=== PATIENT | male | born 1995 | race Caucasian/White ===

== ENCOUNTER 2019-04-12 14:55 | Outpatient (CLI) | payer MEDICAID ==
[~2019-04-12 14:55] MED LIST: IBUP-1985 PO; METH-360 PO
== END 2019-04-12 16:00 | disposition home or self-care (01) ==
LOC: ORTHO 14:55
PROVIDERS: ATTEND Orthopaedic Surgery
DX: S62.337D Displaced fracture of neck of fifth metacarpal bone, left hand, subsequent encounter for fracture with routine healing (principal); X58.XXXD Exposure to other specified factors, subsequent encounter
CPT/HCPCS: 73130; G0463

== ENCOUNTER 2019-05-21 21:35 | Emergency (ER) | payer MEDICAID ==
[~2019-05-21] VITALS: Ht 172.7 cm; Wt 97.7 kg
[2019-05-21 21:37] VITALS: BP 147/82
[2019-05-21] MEDS ORDERED: ketorolac trometh. 30mg/ml inj. IV STA (21:47)
[2019-05-21] MEDS ORDERED: ondansetron/PF 4mg/2ml inj IV STA (21:47)
--- NOTE | 2019-05-21 21:57 | NUR ---
PT TO CT
[2019-05-21 22:01] LABS: BASOPHILS # (AUTO) 0.1 X10'3 (0-0.2); BASOPHILS % (AUTO) 0.7 % (0-1); EOSINOPHILS # (AUTO) 0.2 X10'3 (0-0.9); EOSINOPHILS % (AUTO) 2.4 % (0-6); HEMATOCRIT 42.4 % (42.0-52.0); HEMOGLOBIN 14.2 g/dl (14.0-17.9); LYMPHOCYTES # (AUTO) 2.8 X10'3 (1.1-4.8); MEAN CORPUSCULAR HEMOGLOBIN 28.1 PG (27.0-31.0); MEAN CORPUSCULAR HGB CONC 33.6 g/dL (33.0-36.5); MEAN CORPUSCULAR VOLUME 83.8 FL (78-98); MEAN PLATELET VOLUME 8.1 FL (7.4-10.4); MONOCYTES # (AUTO) 0.5 X10'3 (0-0.9); MONOCYTES % (AUTO) 6.4 % (2-12); NEUTROPHILS # (AUTO) 4.7 X10'3 (1.8-7.7); NEUTROPHILS % (AUTO) 56.5 % (42-75); PLATELET COUNT 260 X10'3 (140-440); RED BLOOD COUNT 5.06 X10'6 (4.70-6.10); RED CELL DISTRIBUTION WIDTH 12.8 % (11.5-14.5); WHITE BLOOD COUNT 8.2 X10'3 (4.5-11.0)
[2019-05-21 22:14] LABS: ALANINE AMINOTRANSFERASE 46 U/L (12-78); ALBUMIN 3.8 G/DL (3.4-5.0); ALBUMIN/GLOBULIN RATIO 1.2 (1.1-1.5); ALKALINE PHOSPHATASE 108 IU/L (46-116); ANION GAP 15 (8-16); ASPARTATE AMINO TRANSFERASE 23 U/L (10-37); BILIRUBIN,TOTAL 0.2 MG/DL (0.1-1.0); BLOOD UREA NITROGEN 14 MG/DL (7-18); BUN/CREATININE RATIO 13.5 (5.4-32.0); CHLORIDE 107 MMOL/L (99-107); CREATININE 1.04 MG/DL (0.60-1.10); GLUCOSE 117 MG/DL (70-104); POTASSIUM 3.9 MMOL/L (3.5-5.1); SODIUM 145 MMOL/L (135-145); TOTAL CARBON DIOXIDE 22.9 MMOL/L (24-32); eGFR 89 ML/MIN
--- NOTE | 2019-05-21 22:14 | NUR ---
HE IS FEELING SO MUCH BETTER, HE SAID THE MEDICINE REALLY WORKED WELL. HE IS NOW UP TO THE BR TO PROVIDE A UA
[2019-05-21 23:05] LABS: CLARITY,URINE CLOUDY (Clear); COLOR,URINE YELLOW (Yellow); GLUCOSE, URINE NEGATIVE (Neg); KETONES,URINE NEGATIVE (Neg); LEUKOCYTE ESTERASE ,URINE TRACE (Neg); NITRITES, URINE NEGATIVE (Neg); OCCULT BLOOD,URINE LARGE (Neg); PROTEIN,URINE TRACE mg/dl (Neg); UROBILINOGEN,URINE 0.2 E.U/dL (0.2-1.0)
[2019-05-21 23:06] LABS: UA COLLECTION TYPE VOIDED
[2019-05-21] MEDS ORDERED: IBUP-1985 PO (23:42)
[2019-05-21] MEDS ORDERED: HYDR-4353 PO (23:42)
[2019-05-21] MEDS ORDERED: FLO0.4C PO (23:42)
== END 2019-05-22 | disposition home or self-care (01) ==
LOC: ER 21:35
DX: N20.0 Calculus of kidney (principal); F12.90 Cannabis use, unspecified, uncomplicated; Z88.1 Allergy status to other antibiotic agents; Z79.899 Other long term (current) drug therapy
CPT/HCPCS: 36415; 74176; 80053; 81001; 85025; 85610; 96374; 96375; 99284; J1885; J2405

== ENCOUNTER 2019-07-23 19:35 | Emergency (ER) | payer MEDICAID ==
[~2019-07-23] VITALS: Ht 172.7 cm; Wt 98.0 kg
[2019-07-23 20:52] LABS: BASOPHILS # (AUTO) 0.1 X10'3 (0-0.2); BASOPHILS % (AUTO) 0.6 % (0-1); EOSINOPHILS # (AUTO) 0.2 X10'3 (0-0.9); EOSINOPHILS % (AUTO) 1.3 % (0-6); HEMATOCRIT 41.9 % (42.0-52.0); LYMPHOCYTES # (AUTO) 2.9 X10'3 (1.1-4.8); LYMPHOCYTES % (AUTO) 20.2 % (21-51); MEAN CORPUSCULAR HEMOGLOBIN 28.2 PG (27.0-31.0); MEAN CORPUSCULAR HGB CONC 33.4 g/dL (33.0-36.5); MEAN CORPUSCULAR VOLUME 84.5 FL (78-98); MEAN PLATELET VOLUME 8.3 FL (7.4-10.4); MONOCYTES # (AUTO) 1.4 X10'3 (0-0.9); MONOCYTES % (AUTO) 9.9 % (2-12); NEUTROPHILS # (AUTO) 9.6 X10'3 (1.8-7.7); PLATELET COUNT 242 X10'3 (140-440); RED BLOOD COUNT 4.95 X10'6 (4.70-6.10); RED CELL DISTRIBUTION WIDTH 12.6 % (11.5-14.5); WHITE BLOOD COUNT 14.2 X10'3 (4.5-11.0)
[2019-07-23 21:05] LABS: ALANINE AMINOTRANSFERASE 22 U/L (12-78); ALBUMIN/GLOBULIN RATIO 1.3 (1.1-1.5); ALKALINE PHOSPHATASE 114 IU/L (46-116); ANION GAP 8 (8-16); ASPARTATE AMINO TRANSFERASE 24 U/L (10-37); BILIRUBIN,TOTAL 0.3 MG/DL (0.1-1.0); BLOOD UREA NITROGEN 17 MG/DL (7-18); BUN/CREATININE RATIO 12.1 (5.4-32.0); CALCIUM 9.1 MG/DL (8.5-10.1); CHLORIDE 105 MMOL/L (99-107); CREATININE 1.41 MG/DL (0.60-1.10); GLUCOSE 100 MG/DL (70-104); LIPASE 160 U/L (73-393); POTASSIUM 3.4 MMOL/L (3.5-5.1); SODIUM 141 MMOL/L (135-145); TOTAL CARBON DIOXIDE 27.6 MMOL/L (24-32); TOTAL PROTEIN 7.2 G/DL (6.4-8.2); eGFR 63 ML/MIN
[2019-07-23] MEDS ORDERED: bisacodyl 10mg suppository rectal RC STA (21:56)
--- NOTE | 2019-07-23 22:18 | NUR ---
[facility] CALLED FOR PATIENT. [facility] STATES THEY WILL TAKE HIM IN
[2019-07-23 23:11] LABS: CLARITY,URINE SLIGHTLY CLOUDY (Clear); COLOR,URINE YELLOW (Yellow); GLUCOSE, URINE NEGATIVE (Neg); KETONES,URINE NEGATIVE (Neg); LEUKOCYTE ESTERASE ,URINE NEGATIVE (Neg); NITRITES, URINE NEGATIVE (Neg); OCCULT BLOOD,URINE LARGE (Neg); PROTEIN,URINE NEGATIVE (Neg); UROBILINOGEN,URINE 0.2 E.U/dL (0.2-1.0)
[2019-07-23 23:12] VITALS: BP 132/71
[2019-07-23 23:18] LABS: UA COLLECTION TYPE CLN CATCH MIDSTREAM
[2019-07-23 23:19] LABS: AMORPHOUS PHOSPHATES 1+; BACTERIA,URINE FEW /HPF (Neg); RBC,URINE 20-50 /HPF (0-2); SQUAMOUS EPITHELIAL CELL,UR FEW /LPF (FEW); WBC,URINE NONE SEEN /HPF (0-4)
[2019-07-24] MEDS ORDERED: POLY17PO10 PO (10:13)
[2019-07-24] MEDS ORDERED: IBUP-1986 PO (12:04)
[2019-07-24] MEDS ORDERED: HYDR-4353 PO (12:04)
[2019-07-24] MEDS ORDERED: FLO0.4C PO (12:04)
== END 2019-07-23 23:23 | disposition home or self-care (01) ==
LOC: ER 19:35
DX: R10.84 Generalized abdominal pain (principal); R41.0 Disorientation, unspecified; K59.00 Constipation, unspecified; M54.5 Low back pain; F10.99 Alcohol use, unspecified with unspecified alcohol-induced disorder; F12.90 Cannabis use, unspecified, uncomplicated; Z88.1 Allergy status to other antibiotic agents; Z79.899 Other long term (current) drug therapy; Y90.9 Presence of alcohol in blood, level not specified
CPT/HCPCS: 36415; 74018; 80053; 81001; 83690; 85025; 99284

== ENCOUNTER 2019-07-24 09:03 | Emergency (ER) | payer MEDICAID ==
[~2019-07-24] VITALS: Ht 172.7 cm; Wt 95.4 kg
[2019-07-24 09:30] LABS: BASOPHILS # (AUTO) 0.1 X10'3 (0-0.2); BASOPHILS % (AUTO) 0.6 % (0-1); EOSINOPHILS % (AUTO) 0.4 % (0-6); HEMATOCRIT 42.7 % (42.0-52.0); HEMOGLOBIN 14.4 g/dl (14.0-17.9); LYMPHOCYTES # (AUTO) 1.9 X10'3 (1.1-4.8); LYMPHOCYTES % (AUTO) 17.4 % (21-51); MEAN CORPUSCULAR HEMOGLOBIN 28.2 PG (27.0-31.0); MEAN CORPUSCULAR HGB CONC 33.7 g/dL (33.0-36.5); MEAN CORPUSCULAR VOLUME 83.8 FL (78-98); MONOCYTES # (AUTO) 0.9 X10'3 (0-0.9); MONOCYTES % (AUTO) 8.4 % (2-12); NEUTROPHILS # (AUTO) 8.2 X10'3 (1.8-7.7); NEUTROPHILS % (AUTO) 73.2 % (42-75); PLATELET COUNT 242 X10'3 (140-440); RED BLOOD COUNT 5.09 X10'6 (4.70-6.10); RED CELL DISTRIBUTION WIDTH 12.5 % (11.5-14.5); WHITE BLOOD COUNT 11.2 X10'3 (4.5-11.0)
[2019-07-24 09:34] LABS: CLARITY,URINE SLIGHTLY CLOUDY (Clear); COLOR,URINE YELLOW (Yellow); GLUCOSE, URINE NEGATIVE (Neg); KETONES,URINE NEGATIVE (Neg); LEUKOCYTE ESTERASE ,URINE NEGATIVE (Neg); NITRITES, URINE NEGATIVE (Neg); OCCULT BLOOD,URINE TRACE-INTACT (Neg); PROTEIN,URINE TRACE mg/dl (Neg); UROBILINOGEN,URINE 0.2 E.U/dL (0.2-1.0)
[2019-07-24 09:38] LABS: UA COLLECTION TYPE CLN CATCH MIDSTREAM
[2019-07-24 09:39] LABS: AMORPHOUS PHOSPHATES 2+; BACTERIA,URINE NONE SEEN /HPF (Neg); MUCUS STRANDS FEW /LPF (Neg); SQUAMOUS EPITHELIAL CELL,UR NONE SEEN /LPF (FEW); WBC,URINE NONE SEEN /HPF (0-4)
[2019-07-24 09:51] LABS: ALANINE AMINOTRANSFERASE 28 U/L (12-78); ALBUMIN 4.3 G/DL (3.4-5.0); ALBUMIN/GLOBULIN RATIO 1.3 (1.1-1.5); ALKALINE PHOSPHATASE 121 IU/L (46-116); ANION GAP 10 (8-16); ASPARTATE AMINO TRANSFERASE 24 U/L (10-37); BILIRUBIN,TOTAL 0.5 MG/DL (0.1-1.0); BLOOD UREA NITROGEN 13 MG/DL (7-18); BUN/CREATININE RATIO 8.6 (5.4-32.0); CALCIUM 9.6 MG/DL (8.5-10.1); CHLORIDE 103 MMOL/L (99-107); CREATININE 1.52 MG/DL (0.60-1.10); GLUCOSE 105 MG/DL (70-104); LIPASE 105 U/L (73-393); POTASSIUM 3.4 MMOL/L (3.5-5.1); SODIUM 141 MMOL/L (135-145); TOTAL CARBON DIOXIDE 28.5 MMOL/L (24-32); TOTAL PROTEIN 7.7 G/DL (6.4-8.2); eGFR 58 ML/MIN
[2019-07-24] MEDS ORDERED: POLY17PO10 PO (10:13)
[2019-07-24] MEDS ORDERED: HYDR-4353 PO (12:04)
[2019-07-24] MEDS ORDERED: FLO0.4C PO (12:04)
[2019-07-24] MEDS ORDERED: IBUP-1986 PO (12:04)
[2019-07-24] MEDS ORDERED: ondansetron 4mg rapidly disintigrating tab PO ONE (12:05)
[2019-07-24] MEDS ORDERED: normal saline 1000ML IV soln IVB ONE (12:05)
[2019-07-24] MEDS ORDERED: ketorolac trometh inj. 60 MG/2 ML VIAL IM ONE (12:05)
[2019-07-24] MEDS ORDERED: HYDROcodone/acetaminophen 10/325mg tab PO ONE (12:05)
[2019-07-24] MEDS ORDERED: tamsulosin 0.4mg capsule PO ONE (12:05)
[2019-07-24 13:00] VITALS: BP 116/75
== END 2019-07-24 13:09 | disposition home or self-care (01) ==
LOC: ER 09:03
DX: N20.0 Calculus of kidney (principal); K59.00 Constipation, unspecified; F09 Unspecified mental disorder due to known physiological condition; F12.90 Cannabis use, unspecified, uncomplicated; Z72.89 Other problems related to lifestyle
CPT/HCPCS: 36415; 74018; 74176; 80053; 81001; 83690; 85025; 85610; J1885; 96361; 96372; 99284

== ENCOUNTER 2019-09-17 11:31 | Emergency (ER) | payer MEDICAID ==
[~2019-09-17] VITALS: Ht 172.7 cm; Wt 96.0 kg
[~2019-09-17 11:31] MED LIST changes: +IBUP-1986 PO
[2019-09-17] MEDS ORDERED: normal saline 1000ml 1,000 ML IV ONE (12:10)
[2019-09-17] MEDS ORDERED: ketorolac tromethamine 15mg/ml inj. IV ONE (12:10)
[2019-09-17] MEDS ORDERED: ondansetron/PF 4mg/2ml inj IV ONE (12:10)
[2019-09-17 12:38] LABS: BASOPHILS % (AUTO) 0.2 % (0-1); EOSINOPHILS # (AUTO) 0.1 X10'3 (0-0.9); EOSINOPHILS % (AUTO) 1.2 % (0-6); HEMATOCRIT 44.9 % (42.0-52.0); HEMOGLOBIN 15.3 g/dl (14.0-17.9); LYMPHOCYTES # (AUTO) 0.7 X10'3 (1.1-4.8); LYMPHOCYTES % (AUTO) 6.5 % (21-51); MEAN CORPUSCULAR HEMOGLOBIN 28.3 PG (27.0-31.0); MEAN CORPUSCULAR VOLUME 83.3 FL (78-98); MEAN PLATELET VOLUME 8.2 FL (7.4-10.4); MONOCYTES # (AUTO) 0.6 X10'3 (0-0.9); NEUTROPHILS % (AUTO) 87.1 % (42-75); PLATELET COUNT 247 X10'3 (140-440); RED BLOOD COUNT 5.39 X10'6 (4.70-6.10); WHITE BLOOD COUNT 11.4 X10'3 (4.5-11.0)
[2019-09-17 12:53] LABS: ALANINE AMINOTRANSFERASE 34 U/L (12-78); ALBUMIN 4.3 G/DL (3.4-5.0); ALBUMIN/GLOBULIN RATIO 1.3 (1.1-1.5); ALKALINE PHOSPHATASE 124 IU/L (46-116); ANION GAP 7 (8-16); ASPARTATE AMINO TRANSFERASE 16 U/L (10-37); BILIRUBIN,TOTAL 0.5 MG/DL (0.1-1.0); BLOOD UREA NITROGEN 14 MG/DL (7-18); BUN/CREATININE RATIO 13.7 (5.4-32.0); CALCIUM 9.3 MG/DL (8.5-10.1); CHLORIDE 104 MMOL/L (99-107); CREATININE 1.02 MG/DL (0.60-1.10); GLUCOSE 93 MG/DL (70-104); LIPASE 93 U/L (73-393); SODIUM 139 MMOL/L (135-145); TOTAL CARBON DIOXIDE 28.4 MMOL/L (24-32); TOTAL PROTEIN 7.7 G/DL (6.4-8.2); eGFR > 90 ML/MIN
[2019-09-17] MEDS ORDERED: PANT-47 PO (12:56)
[2019-09-17] MEDS ORDERED: ONDA8TAB6 PO (12:56)
[2019-09-17 13:14] VITALS: BP 114/51
[2019-09-17 13:55] LABS: CLARITY,URINE CLEAR (Clear); COLOR,URINE YELLOW (Yellow); GLUCOSE, URINE NEGATIVE (Neg); KETONES,URINE NEGATIVE (Neg); LEUKOCYTE ESTERASE ,URINE NEGATIVE (Neg); NITRITES, URINE NEGATIVE (Neg); OCCULT BLOOD,URINE NEGATIVE (Neg); PH,URINE 7.5 (4.8-8.0); PROTEIN,URINE NEGATIVE (Neg); UROBILINOGEN,URINE 0.2 E.U/dL (0.2-1.0)
[2019-09-17 13:56] LABS: UA COLLECTION TYPE CLN CATCH MIDSTREAM
== END 2019-09-17 13:24 | disposition home or self-care (01) ==
LOC: ER 11:32
DX: K52.9 Noninfective gastroenteritis and colitis, unspecified (principal); R11.2 Nausea with vomiting, unspecified; R10.84 Generalized abdominal pain; F12.90 Cannabis use, unspecified, uncomplicated; Z88.1 Allergy status to other antibiotic agents
CPT/HCPCS: 36415; 80053; 81003; 83690; 85025; 96374; 96375; 99283; J1885; J2405; J7030

== ENCOUNTER 2020-04-18 18:50 | Emergency (ER) | payer MEDICAID ==
[~2020-04-18] VITALS: Ht 172.7 cm; Wt 101.8 kg
[~2020-04-18 18:50] MED LIST changes: +ONDA8TAB6 PO; +PANT-47 PO
--- NOTE | 2020-04-18 19:37 | NUR ---
KATHY (MOTHER) CALLED TO GIVE A NUMBER [phone].
--- NOTE | 2020-04-18 20:41 | NUR ---
PT STATES HE TOOK MOM, AND STILL HASN'T HAD A BM. HE STATE HE IS PASSING GAS.
--- NOTE | 2020-04-18 21:07 | NUR ---
ELIE SOLIS MADE AWARE OF PTS ABD PAIN 03/30 IN RLQ.
[2020-04-18] MEDS ORDERED: proCHLORperazine 10 MG/2 ml inj IV ONE (21:25)
[2020-04-18] MEDS ORDERED: normal saline 1000ML IV soln IVB ONE (21:25)
[2020-04-18] MEDS ORDERED: LORazepam 2 mg/ml vial IV ONE (21:25)
[2020-04-18 21:37] LABS: CLARITY,URINE CLEAR (Clear); COLOR,URINE YELLOW (Yellow); GLUCOSE, URINE NEGATIVE (Neg); KETONES,URINE NEGATIVE (Neg); LEUKOCYTE ESTERASE ,URINE NEGATIVE (Neg); NITRITES, URINE NEGATIVE (Neg); OCCULT BLOOD,URINE LARGE (Neg); PROTEIN,URINE NEGATIVE (Neg); UROBILINOGEN,URINE 0.2 E.U/dL (0.2-1.0)
[2020-04-18 21:40] LABS: UA COLLECTION TYPE CLN CATCH MIDSTREAM
[2020-04-18 21:42] LABS: BACTERIA,URINE FEW /HPF (Neg); RBC,URINE 20-50 /HPF (0-2); SQUAMOUS EPITHELIAL CELL,UR FEW /LPF (FEW); WBC,URINE 0-4 /HPF (0-4)
[2020-04-18 21:48] LABS: BASOPHILS % (AUTO) 0.4 % (0-1); EOSINOPHILS # (AUTO) 0.2 X10'3 (0-0.9); EOSINOPHILS % (AUTO) 1.5 % (0-6); HEMATOCRIT 44.8 % (42.0-52.0); LYMPHOCYTES # (AUTO) 2.3 X10'3 (1.1-4.8); LYMPHOCYTES % (AUTO) 21.6 % (21-51); MEAN CORPUSCULAR HEMOGLOBIN 27.7 PG (27.0-31.0); MEAN CORPUSCULAR HGB CONC 33.5 g/dL (33.0-36.5); MEAN CORPUSCULAR VOLUME 82.7 FL (78-98); MEAN PLATELET VOLUME 8.2 FL (7.4-10.4); MONOCYTES # (AUTO) 0.6 X10'3 (0-0.9); MONOCYTES % (AUTO) 5.5 % (2-12); NEUTROPHILS # (AUTO) 7.6 X10'3 (1.8-7.7); PLATELET COUNT 255 X10'3 (140-440); RED BLOOD COUNT 5.41 X10'6 (4.70-6.10); RED CELL DISTRIBUTION WIDTH 12.8 % (11.5-14.5); WHITE BLOOD COUNT 10.7 X10'3 (4.5-11.0)
[2020-04-18 21:49] LABS: URINE AMPHETAMINE SCREEN NEGATIVE (Neg); URINE BARBITUATE SCREEN NEGATIVE (Neg); URINE BENZODIAZEPINES SCREEN NEGATIVE (Neg); URINE CANNABINOID SCREEN NEGATIVE (Neg); URINE COCAINE SCREEN NEGATIVE (Neg); URINE METHADONE SCREEN NEGATIVE (Neg); URINE OPIATE SCREEN NEGATIVE (Neg); URINE PHENCYCLIDINE SCREEN NEGATIVE (Neg)
[2020-04-18 22:03] LABS: ALANINE AMINOTRANSFERASE 32 U/L (12-78); ALBUMIN 4.3 G/DL (3.4-5.0); ALBUMIN/GLOBULIN RATIO 1.2 (1.1-1.5); ALKALINE PHOSPHATASE 102 IU/L (46-116); ANION GAP 8 (8-16); ASPARTATE AMINO TRANSFERASE 18 U/L (10-37); BILIRUBIN,TOTAL 0.3 MG/DL (0.1-1.0); BLOOD UREA NITROGEN 12 MG/DL (7-18); BUN/CREATININE RATIO 11.9 (5.4-32.0); CALCIUM 9.1 MG/DL (8.5-10.1); CHLORIDE 104 MMOL/L (99-107); CREATININE 1.01 MG/DL (0.60-1.10); GLUCOSE 103 MG/DL (70-104); LIPASE 114 U/L (73-393); SODIUM 141 MMOL/L (135-145); TOTAL CARBON DIOXIDE 29.2 MMOL/L (24-32); TOTAL PROTEIN 7.8 G/DL (6.4-8.2); eGFR > 90 ML/MIN
[2020-04-18] MEDS ORDERED: MELA1TAB28 PO (22:19)
[2020-04-18] MEDS ORDERED: CLON0.2T PO (22:19)
[2020-04-18] MEDS ORDERED: CLON-529 PO (22:19)
[2020-04-18] MEDS ORDERED: magnesium citrate 296ml oral solution PO ONE (23:25)
[2020-04-18] MEDS ORDERED: IBUP-1985 PO (23:28)
[2020-04-18] MEDS ORDERED: FLO0.4C PO (23:28)
[2020-04-18] MEDS ORDERED: tamsulosin 0.4mg capsule PO STA (23:45)
[2020-04-18 23:52] VITALS: BP 120/70
== END 2020-04-18 23:56 | disposition home or self-care (01) ==
LOC: ER 18:50
DX: K59.00 Constipation, unspecified (principal); R31.9 Hematuria, unspecified; R10.30 Lower abdominal pain, unspecified; M54.5 Low back pain; F12.90 Cannabis use, unspecified, uncomplicated; Z87.442 Personal history of urinary calculi; Z72.89 Other problems related to lifestyle; Z88.1 Allergy status to other antibiotic agents; Z79.899 Other long term (current) drug therapy
CPT/HCPCS: 36415; 74018; 80053; 80305; 81001; 83690; 85025; 96374; 96375; 99284; J0780; J2060; J7030

== ENCOUNTER 2022-04-06 09:38 | Emergency (ER) | payer MEDICAID ==
[~2022-04-06] VITALS: Ht 172.7 cm; Wt 95.0 kg
[~2022-04-06 09:38] MED LIST changes: +CLON-529 PO; +CLON0.2T PO; -IBUP-1986 PO; +MELA1TAB28 PO; -METH-360 PO; -ONDA8TAB6 PO; -PANT-47 PO
[2022-04-06] MEDS ORDERED: LORazepam 2 mg/ml vial IV ONE (10:00)
[2022-04-06 10:33] LABS: BASOPHILS # (AUTO) 0.1 X10'3 (0-0.2); BASOPHILS % (AUTO) 0.8 % (0-1); EOSINOPHILS # (AUTO) 0.2 X10'3 (0-0.9); EOSINOPHILS % (AUTO) 2.3 % (0-6); HEMATOCRIT 43.7 % (42.0-52.0); HEMOGLOBIN 14.8 g/dl (14.0-17.9); LYMPHOCYTES # (AUTO) 3.3 X10'3 (1.1-4.8); LYMPHOCYTES % (AUTO) 46.4 % (21-51); MEAN CORPUSCULAR HEMOGLOBIN 27.7 PG (27.0-31.0); MEAN CORPUSCULAR HGB CONC 33.8 g/dL (33.0-36.5); MEAN CORPUSCULAR VOLUME 82.1 FL (78-98); MONOCYTES # (AUTO) 0.6 X10'3 (0-0.9); MONOCYTES % (AUTO) 8.9 % (2-12); NEUTROPHILS % (AUTO) 41.6 % (42-75); PLATELET COUNT 341 X10'3 (140-440); RED BLOOD COUNT 5.32 X10'6 (4.70-6.10); RED CELL DISTRIBUTION WIDTH 12.8 % (11.5-14.5); WHITE BLOOD COUNT 7.1 X10'3 (4.5-11.0)
[2022-04-06 10:51] LABS: ALANINE AMINOTRANSFERASE 31 U/L (12-78); ALBUMIN 3.6 G/DL (3.4-5.0); ALKALINE PHOSPHATASE 109 IU/L (46-116); ANION GAP 10 (8-16); ASPARTATE AMINO TRANSFERASE 17 U/L (10-37); BILIRUBIN,TOTAL 0.2 MG/DL (0.1-1.0); BLOOD UREA NITROGEN 9 MG/DL (7-18); BUN/CREATININE RATIO 8.7 (5.4-32.0); CHLORIDE 107 MMOL/L (99-107); CREATININE 1.03 MG/DL (0.60-1.10); GLUCOSE 110 MG/DL (70-104); POTASSIUM 3.2 MMOL/L (3.5-5.1); SODIUM 142 MMOL/L (135-145); TOTAL CARBON DIOXIDE 25.1 MMOL/L (24-32); TOTAL PROTEIN 7.3 G/DL (6.4-8.2); eGFR 88 ML/MIN
[2022-04-06] MEDS ORDERED: normal saline 1000ML IV soln IVB ONE (12:55)
[2022-04-06 15:15] VITALS: BP 116/59
== END 2022-04-06 15:19 | disposition home or self-care (01) ==
LOC: ER 09:38
DX: R00.0 Tachycardia, unspecified (principal); F12.90 Cannabis use, unspecified, uncomplicated; Z88.1 Allergy status to other antibiotic agents
CPT/HCPCS: 36415; 71045; 80053; 83880; 84484; 85025; 93005; 96361; 96374; 99285; J2060; J7030

== ENCOUNTER 2024-01-31 07:26 | Emergency (ER) | payer MEDICAID ==
[~2024-01-31] VITALS: Ht 175.3 cm; Wt 90.0 kg
[2024-01-31 07:29] VITALS: BP 132/85; PULSE 66; RESP 16; TEMP 97.8; O2SAT 95
[2024-01-31] MEDS: BUPIVAcaine 0.5% W/EPI /PF 10ml vial IJ STA (08:36)
[2024-01-31] MEDS: BUPIVAcaine 0.5% W/EPI /PF 30ml vial IJ STA (08:37)
[2024-01-31] MEDS ORDERED: AMOX-101 PO (09:07)
[2024-01-31] MEDS ORDERED: IBUP-1986 PO (09:07)
== END 2024-01-31 09:26 | disposition home or self-care (01) ==
LOC: ER 07:27
DX: K08.89 Other specified disorders of teeth and supporting structures (principal); F12.90 Cannabis use, unspecified, uncomplicated; Z88.1 Allergy status to other antibiotic agents; Z79.2 Long term (current) use of antibiotics; Z79.899 Other long term (current) drug therapy
CPT/HCPCS: 64400; 99284

== ENCOUNTER 2024-05-07 20:00 | Emergency (ER) | payer MEDICAID ==
[~2024-05-07] VITALS: Ht 172.7 cm; Wt 90.9 kg
[~2024-05-07 20:00] MED LIST changes: +IBUP-1986 PO
[2024-05-07 20:29] VITALS: BP 96/63; PULSE 90; TEMP 98.2; O2SAT 96
[2024-05-07] MEDS: LIDOcaine 1% 30ml preserv. free vial SQ STA (20:43)
[2024-05-07 21:14] VITALS: RESP 18
== END 2024-05-07 21:15 | disposition home or self-care (01) ==
LOC: ER 20:00
DX: S61.511A Laceration without foreign body of right wrist, initial encounter (principal); F41.9 Anxiety disorder, unspecified; F32.A Depression, unspecified; F12.90 Cannabis use, unspecified, uncomplicated; Z88.1 Allergy status to other antibiotic agents; Z79.899 Other long term (current) drug therapy; Z79.1 Long term (current) use of non-steroidal anti-inflammatories (NSAID); W45.8XXA Other foreign body or object entering through skin, initial encounter; Y93.89 Activity, other specified; Y92.89 Other specified places as the place of occurrence of the external cause; Y99.8 Other external cause status
CPT/HCPCS: 12001; 99282; A6449